=== PATIENT | male | born 1960 | race Caucasian/White ===

== ENCOUNTER → 2017-02-03 | Outpatient (CLI) | payer BC ==
[2017-02-03 08:06] LABS: ALBUMIN 3.6 GM/DL (3.2-5.2); ALKALINE PHOSPHATASE 87 U/L (45-117); ALT/SGPT 36 U/L (12-78); ANION GAP 6 MEQ/L (8-16); AST/SGOT 21 U/L (15-37); BILIRUBIN,TOTAL 0.7 MG/DL (0.2-1.0); BLOOD UREA NITROGEN 13 MG/DL (7-18); CALCIUM LEVEL 9.3 MG/DL (8.5-10.1); CARBON DIOXIDE LEVEL 32 MEQ/L (21-32); CHLORIDE LEVEL 99 MEQ/L (98-107); CHOLESTEROL LEVEL 174 MG/DL (<200); CREATININE FOR GFR 0.82 MG/DL (0.70-1.30); GLOMERULAR FILTRATION RATE > 60.0 (>56); GLUCOSE, FASTING 105 MG/DL (70-105); POTASSIUM SERUM 4.3 MEQ/L (3.5-5.1); SODIUM LEVEL 137 MEQ/L (136-145); TOTAL PROTEIN 7.2 GM/DL (6.4-8.2); TRIGLYCERIDES LEVEL 133 MG/DL (<150)
== END ==
LOC: M LAB 07:07
PROVIDERS: ATTEND Internal Medicine
DX: I10 Essential (primary) hypertension (principal); R73.01 Impaired fasting glucose; E78.00 Pure hypercholesterolemia, unspecified; Z12.5 Encounter for screening for malignant neoplasm of prostate
CPT/HCPCS: 36415; 80053; 80061; 83036; G0103

== ENCOUNTER → 2017-09-01 | Outpatient (CLI) | payer BC ==
[2017-09-01 08:56] LABS: MEAN CORPUSCULAR HGB CONC 34.3 g/dl (32.0-36.5); MEAN CORPUSCULAR VOLUME 90.3 fl (80.0-96.0); PLATELET COUNT, AUTOMATED 224 10^3/uL (150-450); WHITE BLOOD COUNT 5.8 10^3/uL (4.0-10.0)
[2017-09-01 09:34] LABS: ALBUMIN 3.8 GM/DL (3.2-5.2); ALBUMIN/GLOBULIN RATIO 1.09 (1.00-1.93); ALKALINE PHOSPHATASE 69 U/L (45-117); ALT/SGPT 34 U/L (12-78); ANION GAP 6 MEQ/L (8-16); AST/SGOT 19 U/L (7-37); BILIRUBIN,TOTAL 0.7 MG/DL (0.2-1.0); BLOOD UREA NITROGEN 21 MG/DL (7-18); CALCIUM LEVEL 8.4 MG/DL (8.5-10.1); CARBON DIOXIDE LEVEL 31 MEQ/L (21-32); CHLORIDE LEVEL 101 MEQ/L (98-107); CHOLESTEROL LEVEL 199 MG/DL (<200); CREATININE FOR GFR 0.85 MG/DL (0.70-1.30); GLOMERULAR FILTRATION RATE > 60.0 (>56); GLUCOSE, FASTING 102 MG/DL (70-105); MAGNESIUM LEVEL 2.4 MG/DL (1.8-2.4); POTASSIUM SERUM 3.9 MEQ/L (3.5-5.1); SODIUM LEVEL 138 MEQ/L (136-145); TOTAL PROTEIN 7.3 GM/DL (6.4-8.2); TRIGLYCERIDES LEVEL 144 MG/DL (<150)
== END ==
LOC: M WUC 08:07
DX: Z79.899 Other long term (current) drug therapy (principal); I10 Essential (primary) hypertension
CPT/HCPCS: 83735

== ENCOUNTER → 2018-03-24 | Outpatient (CLI) | payer BC ==
[2018-03-24 11:20] LABS: ALBUMIN 3.8 GM/DL (3.2-5.2); ALBUMIN/GLOBULIN RATIO 1.03 (1.00-1.93); ALKALINE PHOSPHATASE 66 U/L (45-117); ALT/SGPT 40 U/L (12-78); ANION GAP 7 MEQ/L (8-16); AST/SGOT 21 U/L (7-37); BILIRUBIN,TOTAL 0.7 MG/DL (0.2-1.0); BLOOD UREA NITROGEN 17 MG/DL (7-18); CALCIUM LEVEL 8.7 MG/DL (8.8-10.2); CARBON DIOXIDE LEVEL 30 MEQ/L (21-32); CHLORIDE LEVEL 101 MEQ/L (98-107); CHOLESTEROL LEVEL 194 MG/DL (<200); CHOLESTEROL RISK RATIO 3.464 (<5); CREATININE FOR GFR 0.73 MG/DL (0.70-1.30); GLOMERULAR FILTRATION RATE > 60.0 (>49); GLUCOSE, FASTING 96 MG/DL (70-100); HDL CHOLESTEROL 56 MG/DL (>40); LDL CHOLESTEROL 115.2 MG/DL (<100); MAGNESIUM LEVEL 2.2 MG/DL (1.8-2.4); NON-HDL-C 138 MG/DL; POTASSIUM SERUM 4.6 MEQ/L (3.5-5.1); SODIUM LEVEL 138 MEQ/L (136-145); TOTAL PROTEIN 7.5 GM/DL (6.4-8.2); TRIGLYCERIDES LEVEL 114 MG/DL (<150)
[2018-03-24 11:27] LABS: CREATININE, URINE 37.9 MG/DL; MALB URINE SIEMENS < 5.0 MG/L; MAU/CREAT RATIO 13.1 MCG/MG (0.0-30.0)
[2018-03-24 12:13] LABS: ESTIMATED AVERAGE GLUCOSE 114 MG/DL (60-110); HEMOGLOBIN A1c 5.6 %
== END ==
LOC: M WUC 08:18
DX: I10 Essential (primary) hypertension (principal); R73.01 Impaired fasting glucose; E78.00 Pure hypercholesterolemia, unspecified
CPT/HCPCS: 83735

== ENCOUNTER → 2018-12-27 | Outpatient (CLI) | payer BC ==
[2018-12-27 12:56] LABS: HEMATOCRIT 44.9 % (42.0-52.0); HEMOGLOBIN 14.8 g/dl (13.5-17.5); MEAN CORPUSCULAR HEMOGLOBIN 30.5 pg (27.0-33.0); MEAN CORPUSCULAR VOLUME 92.6 fl (80.0-96.0); PLATELET COUNT, AUTOMATED 218 10^3/uL (150-450); RED BLOOD COUNT 4.85 10^6/uL (4.30-6.10); WHITE BLOOD COUNT 5.2 10^3/uL (4.0-10.0)
[2018-12-27 13:21] LABS: HEMOGLOBIN A1c 5.8 %
[2018-12-27 13:31] LABS: ALBUMIN 3.7 GM/DL (3.2-5.2); ALT/SGPT 33 U/L (12-78); BILIRUBIN,TOTAL 0.8 MG/DL (0.2-1.0); BLOOD UREA NITROGEN 17 MG/DL (7-18); CALCIUM LEVEL 9.1 MG/DL (8.8-10.2); CARBON DIOXIDE LEVEL 31 MEQ/L (21-32); CHLORIDE LEVEL 99 MEQ/L (98-107); CHOLESTEROL LEVEL 221 MG/DL (<200); CHOLESTEROL RISK RATIO 3.946 (<5); CREATININE FOR GFR 0.82 MG/DL (0.70-1.30); GLOMERULAR FILTRATION RATE > 60.0 (>49); GLUCOSE, FASTING 98 MG/DL (70-100); HDL CHOLESTEROL 56 MG/DL (>40); LDL CHOLESTEROL 117 MG/DL (<100); NON-HDL-C 165 MG/DL; SODIUM LEVEL 137 MEQ/L (136-145); TOTAL PROTEIN 6.8 GM/DL (6.4-8.2); TRIGLYCERIDES LEVEL 238 MG/DL (<150)
[2018-12-28 10:28] LABS: URIC ACID 7.2 MG/DL (3.5-7.2)
== END ==
LOC: M WUC 08:51
PROVIDERS: ATTEND Internal Medicine
DX: E78.00 Pure hypercholesterolemia, unspecified (principal); R73.01 Impaired fasting glucose; E66.01 Morbid (severe) obesity due to excess calories; Z79.899 Other long term (current) drug therapy; M25.50 Pain in unspecified joint

== ENCOUNTER → 2019-08-24 | Outpatient (CLI) | payer BC ==
[2019-08-24 12:16] LABS: ALBUMIN 3.7 GM/DL (3.2-5.2); ALT/SGPT 40 U/L (12-78); BILIRUBIN,TOTAL 0.7 MG/DL (0.2-1.0); BLOOD UREA NITROGEN 20 MG/DL (7-18); CALCIUM LEVEL 9.3 MG/DL (8.8-10.2); CARBON DIOXIDE LEVEL 32 MEQ/L (21-32); CHLORIDE LEVEL 98 MEQ/L (98-107); CHOLESTEROL LEVEL 203 MG/DL (<200); CHOLESTEROL RISK RATIO 3.903 (<5); CREATININE FOR GFR 0.88 MG/DL (0.70-1.30); GLOMERULAR FILTRATION RATE > 60.0 (>49); GLUCOSE, FASTING 109 MG/DL (70-100); HDL CHOLESTEROL 52 MG/DL (>40); LDL CHOLESTEROL 123 MG/DL (<100); MAGNESIUM LEVEL 1.9 MG/DL (1.8-2.4); NON-HDL-C 151 MG/DL; POTASSIUM SERUM 4.5 MEQ/L (3.5-5.1); SODIUM LEVEL 139 MEQ/L (136-145); TOTAL PROTEIN 7.3 GM/DL (6.4-8.2); TRIGLYCERIDES LEVEL 141 MG/DL (<150); URIC ACID 7.3 MG/DL (3.5-7.2)
== END ==
LOC: M WUC 08:59
PROVIDERS: ATTEND Internal Medicine
DX: M25.50 Pain in unspecified joint (principal); I10 Essential (primary) hypertension; R73.01 Impaired fasting glucose

== ENCOUNTER → 2020-07-02 | Outpatient (CLI) | payer BC ==
[2020-07-02 16:11] LABS: HEMATOCRIT 47.3 % (42.0-52.0); HEMOGLOBIN 14.7 g/dl (13.5-17.5); MEAN CORPUSCULAR HEMOGLOBIN 29.3 pg (27.0-33.0); MEAN CORPUSCULAR HGB CONC 31.1 g/dl (32.0-36.5); MEAN CORPUSCULAR VOLUME 94.2 fl (80.0-96.0); PLATELET COUNT, AUTOMATED 278 10^3/uL (150-450); RED BLOOD COUNT 5.02 10^6/uL (4.30-6.10)
[2020-07-02 16:28] LABS: HEMOGLOBIN A1c 5.6 %
[2020-07-02 16:38] LABS: ALBUMIN 3.8 GM/DL (3.2-5.2); ALT/SGPT 36 U/L (12-78); BILIRUBIN,TOTAL 0.6 MG/DL (0.2-1.0); BLOOD UREA NITROGEN 9 MG/DL (7-18); CALCIUM LEVEL 9.5 MG/DL (8.8-10.2); CARBON DIOXIDE LEVEL 33 MEQ/L (21-32); CHLORIDE LEVEL 96 MEQ/L (98-107); CHOLESTEROL LEVEL 233 MG/DL (<200); CHOLESTEROL RISK RATIO 4.236 (<5); CREATININE FOR GFR 0.73 MG/DL (0.70-1.30); GLOMERULAR FILTRATION RATE > 60.0 (>49); GLUCOSE, FASTING 94 MG/DL (70-100); HDL CHOLESTEROL 55 MG/DL (>40); LDL CHOLESTEROL 131 MG/DL (<100); MAGNESIUM LEVEL 2.1 MG/DL (1.8-2.4); NON-HDL-C 178 MG/DL; SODIUM LEVEL 134 MEQ/L (136-145); TOTAL PROTEIN 7.8 GM/DL (6.4-8.2); TRIGLYCERIDES LEVEL 237 MG/DL (<150)
== END ==
LOC: M WUC 11:47
PROVIDERS: ATTEND Internal Medicine
DX: Z12.5 Encounter for screening for malignant neoplasm of prostate (principal); I10 Essential (primary) hypertension; Z86.010 Personal history of colon polyps
CPT/HCPCS: 36415; 80053; 80061; 83036; 83735; 85027; G0103

== ENCOUNTER → 2021-04-01 | Outpatient (CLI) | payer BC ==
[2021-04-01 13:13] LABS: ALBUMIN 3.8 GM/DL (3.2-5.2); ALT/SGPT 32 U/L (12-78); BILIRUBIN,TOTAL 0.7 MG/DL (0.2-1.0); BLOOD UREA NITROGEN 14 MG/DL (7-18); CALCIUM LEVEL 9.3 MG/DL (8.8-10.2); CARBON DIOXIDE LEVEL 33 MEQ/L (21-32); CHLORIDE LEVEL 98 MEQ/L (98-107); CHOLESTEROL LEVEL 205 MG/DL (<200); CHOLESTEROL RISK RATIO 3.474 (<5); CREATININE FOR GFR 0.79 MG/DL (0.70-1.30); GLOMERULAR FILTRATION RATE > 60.0 (>49); GLUCOSE, FASTING 100 MG/DL (70-100); HDL CHOLESTEROL 59 MG/DL (>40); LDL CHOLESTEROL 111 MG/DL (<100); MAGNESIUM LEVEL 2.1 MG/DL (1.8-2.4); NON-HDL-C 146 MG/DL; POTASSIUM SERUM 3.9 MEQ/L (3.5-5.1); SODIUM LEVEL 136 MEQ/L (136-145); TOTAL PROTEIN 7.7 GM/DL (6.4-8.2); TRIGLYCERIDES LEVEL 177 MG/DL (<150)
[2021-04-01 14:00] LABS: HEPATITIS C VIRUS ABY INDEX 0.1 INDEX (<0.8)
== END ==
LOC: M WUC 11:31
PROVIDERS: ATTEND Internal Medicine
DX: E78.00 Pure hypercholesterolemia, unspecified (principal); I10 Essential (primary) hypertension

== ENCOUNTER → 2022-10-13 | Outpatient (CLI) | payer BC ==
[2022-10-13 11:28] LABS: HEMATOCRIT 43.3 % (42.0-52.0); HEMOGLOBIN 13.6 g/dl (13.5-17.5); MEAN CORPUSCULAR HEMOGLOBIN 29.2 pg (27.0-33.0); MEAN CORPUSCULAR HGB CONC 31.4 g/dl (32.0-36.5); MEAN CORPUSCULAR VOLUME 92.9 fl (80.0-96.0); PLATELET COUNT, AUTOMATED 233 10^3/uL (150-450); RED BLOOD COUNT 4.66 10^6/uL (4.30-6.10); WHITE BLOOD COUNT 6.1 10^3/uL (4.0-10.0)
[2022-10-13 11:47] LABS: HEMOGLOBIN A1c 5.5 % (4.0-6.0)
[2022-10-13 12:00] LABS: THYROID STIMULATING HORMONE 4.171 uIU/ML (0.55-4.78); TOTAL 25(OH) VITAMIN D 14.8 NG/ML (20.0-100.0)
[2022-10-13 12:01] LABS: FREE T4 1.07 NG/DL (0.89-1.76)
[2022-10-13 12:03] LABS: VITAMIN B12 LEVEL 400 PG/ML (211-911)
[2022-10-13 12:06] LABS: ALBUMIN 3.7 G/DL (3.2-5.2); ALKALINE PHOSPHATASE 90 U/L (46-116); ALT/SGPT 22 U/L (7.0-40); AST/SGOT 22 U/L (<34); BILIRUBIN,TOTAL 0.7 MG/DL (0.3-1.2); BLOOD UREA NITROGEN 20 MG/DL (9-23); CALCIUM LEVEL 9.2 MG/DL (8.3-10.6); CARBON DIOXIDE LEVEL 33 MMOL/L (20-31); CHLORIDE LEVEL 96 MMOL/L (98-107); CHOLESTEROL LEVEL 191 MG/DL (<200); CHOLESTEROL RISK RATIO 3.52 (<5); CREATININE FOR GFR 0.78 MG/DL (0.70-1.30); GLOMERULAR FILTRATION RATE > 60.0 (>49); GLUCOSE, FASTING 100 MG/DL (74-106); HDL CHOLESTEROL 54.2 MG/DL (>40); LDL CHOLESTEROL 112.4 MG/DL (<100); NON-HDL-C 137 MG/DL; POTASSIUM SERUM 4.5 MMOL/L (3.5-5.1); SODIUM LEVEL 134 MMOL/L (136-145); TRIGLYCERIDES LEVEL 122 MG/DL (<150)
== END ==
LOC: M WUC 08:14
PROVIDERS: ATTEND Internal Medicine Hematology
DX: I10 Essential (primary) hypertension (principal)

== ENCOUNTER → 2023-03-23 | Outpatient (CLI) | payer BC ==
[2023-03-23 17:40] LABS: HEMATOCRIT 40.3 % (42.0-52.0); MEAN CORPUSCULAR HEMOGLOBIN 30.6 pg (27.0-33.0); MEAN CORPUSCULAR HGB CONC 32.3 g/dl (32.0-36.5); MEAN CORPUSCULAR VOLUME 94.8 fl (80.0-96.0); PLATELET COUNT, AUTOMATED 260 10^3/uL (150-450); RED BLOOD COUNT 4.25 10^6/uL (4.30-6.10); WHITE BLOOD COUNT 7.6 10^3/uL (4.0-10.0)
[2023-03-23 17:56] LABS: ALBUMIN 3.4 G/DL (3.2-5.2); ALKALINE PHOSPHATASE 79 U/L (46-116); ALT/SGPT 21 U/L (7.0-40); AST/SGOT 12 U/L (<34); BILIRUBIN,TOTAL 0.7 MG/DL (0.3-1.2); BLOOD UREA NITROGEN 25 MG/DL (9-23); CALCIUM LEVEL 9.1 MG/DL (8.3-10.6); CARBON DIOXIDE LEVEL 29 MMOL/L (20-31); CHLORIDE LEVEL 99 MMOL/L (98-107); CHOLESTEROL LEVEL 173 MG/DL (<200); CHOLESTEROL RISK RATIO 3.19 (<5); GLOMERULAR FILTRATION RATE > 60.0 (>49); GLUCOSE, FASTING 94 MG/DL (74-106); HDL CHOLESTEROL 54.1 MG/DL (>40); LDL CHOLESTEROL 91.5 MG/DL (<100); NON-HDL-C 118.9 MG/DL; SODIUM LEVEL 138 MMOL/L (136-145); TOTAL PROTEIN 6.8 G/DL (5.7-8.2); TRIGLYCERIDES LEVEL 137 MG/DL (<150)
[2023-03-23 17:57] LABS: THYROID STIMULATING HORMONE 3.029 uIU/ML (0.55-4.78); TOTAL 25(OH) VITAMIN D 35.2 NG/ML (20.0-100.0); VITAMIN B12 LEVEL 374 PG/ML (211-911)
[2023-03-23 17:59] LABS: FREE T4 0.96 NG/DL (0.89-1.76)
[2023-03-23 18:00] LABS: HEMOGLOBIN A1c 5.4 % (4.0-6.0)
== END ==
LOC: M WUC 13:09
PROVIDERS: ATTEND Internal Medicine Hematology
DX: E78.00 Pure hypercholesterolemia, unspecified (principal)

== ENCOUNTER → 2023-12-27 | Outpatient (REF) | payer MEDICARE, BC ==
[2023-12-27 13:30] LABS: FERRITIN 353.8 NG/ML (10.5-307.3)
[2023-12-27 13:37] LABS: PERCENT SATURATION 19.9 % (19.7-50.0)
== END ==
LOC: M LABWUC 12:39
PROVIDERS: ATTEND Internal Medicine Hematology
DX: D50.9 Iron deficiency anemia, unspecified (principal)

== ENCOUNTER → 2024-03-30 | Outpatient (REF) | payer MEDICARE, OTHER ==
[2024-03-30 13:38] LABS: PERCENT SATURATION 23.7 % (19.7-50.0)
[2024-03-30 13:41] LABS: FERRITIN 238.9 NG/ML (10.5-307.3)
== END ==
LOC: M LAB REF 12:21
PROVIDERS: ATTEND Internal Medicine
DX: D50.9 Iron deficiency anemia, unspecified (principal)

== ENCOUNTER → 2024-05-15 | Outpatient (CLI) | payer BC, MEDICARE, OTHER | LOC: M WUC 08:29 | PROVIDERS: ATTEND Internal Medicine Cardiovascular Disease | DX: R06.02 Shortness of breath (principal); I27.82 Chronic pulmonary embolism; I26.92 Saddle embolus of pulmonary artery without acute cor pulmonale ==

== ENCOUNTER → 2024-08-16 | Outpatient (CLI) | payer OTHER ==
[2024-08-16 10:15] LABS: INR 1.05
== END ==
LOC: M WUC 08:38
PROVIDERS: ATTEND Internal Medicine Hematology & Oncology
DX: I26.09 Other pulmonary embolism with acute cor pulmonale (principal); D68.61 Antiphospholipid syndrome

== ENCOUNTER → 2024-08-23 | Outpatient (REF) | payer OTHER ==
[2024-08-23 11:52] LABS: INR 1.42; PROTHROMBIN TIME 17.6 SECONDS (12.5-14.5)
== END ==
LOC: M LABWUC 11:14
PROVIDERS: ATTEND Internal Medicine Hematology & Oncology
DX: I26.09 Other pulmonary embolism with acute cor pulmonale (principal); D68.61 Antiphospholipid syndrome

== ENCOUNTER → 2024-08-23 | Outpatient (REF) | payer OTHER | LOC: M LAB REF 12:12 | PROVIDERS: ATTEND Physician Assistant | DX: B34.9 Viral infection, unspecified (principal) ==

== ENCOUNTER → 2024-08-31 | Outpatient (REF) | payer OTHER ==
[2024-08-31 16:18] LABS: INR 1.56; PROTHROMBIN TIME 18.9 SECONDS (12.5-14.5)
== END ==
LOC: M LABWUC 15:58
PROVIDERS: ATTEND Internal Medicine Hematology & Oncology
DX: I26.09 Other pulmonary embolism with acute cor pulmonale (principal); D68.61 Antiphospholipid syndrome

== ENCOUNTER → 2024-09-07 | Outpatient (REF) | payer OTHER ==
[2024-09-07 11:37] LABS: INR 1.46
== END ==
LOC: M LABWUC 11:16
PROVIDERS: ATTEND Internal Medicine Hematology & Oncology
DX: I26.09 Other pulmonary embolism with acute cor pulmonale (principal); D68.61 Antiphospholipid syndrome

== ENCOUNTER → 2024-09-18 | Outpatient (REF) | payer BC, MEDICARE, OTHER ==
[2024-09-18 12:19] LABS: INR 1.52; PROTHROMBIN TIME 18.6 SECONDS (12.5-14.5)
== END ==
LOC: M LABWUC 11:21
PROVIDERS: ATTEND Internal Medicine Hematology & Oncology
DX: I26.09 Other pulmonary embolism with acute cor pulmonale (principal); D68.61 Antiphospholipid syndrome

== ENCOUNTER → 2024-09-25 | Outpatient (REF) | payer OTHER ==
[2024-09-25 13:29] LABS: INR 1.68
== END ==
LOC: M LABWUC 12:45
PROVIDERS: ATTEND Internal Medicine Hematology & Oncology
DX: I26.09 Other pulmonary embolism with acute cor pulmonale (principal); D68.61 Antiphospholipid syndrome

== ENCOUNTER → 2024-10-02 | Outpatient (REF) | payer BC, MEDICARE, OTHER ==
[2024-10-02 12:28] LABS: INR 3.37; PROTHROMBIN TIME 33.9 SECONDS (12.5-14.5)
== END ==
LOC: M LABWUC 12:13
PROVIDERS: ATTEND Internal Medicine Hematology & Oncology
DX: I26.09 Other pulmonary embolism with acute cor pulmonale (principal); D68.61 Antiphospholipid syndrome

== ENCOUNTER → 2024-10-09 | Outpatient (REF) | payer BC, MEDICARE, OTHER ==
[2024-10-09 12:36] LABS: INR 1.78; PROTHROMBIN TIME 20.9 SECONDS (12.5-14.5)
== END ==
LOC: M LABWUC 12:18
PROVIDERS: ATTEND Internal Medicine Hematology & Oncology
DX: I26.09 Other pulmonary embolism with acute cor pulmonale (principal); D68.61 Antiphospholipid syndrome

== ENCOUNTER → 2024-10-16 | Outpatient (REF) | payer OTHER ==
[2024-10-16 10:11] LABS: INR 1.58; PROTHROMBIN TIME 19.1 SECONDS (12.5-14.5)
== END ==
LOC: M LABWUC 09:39
PROVIDERS: ATTEND Internal Medicine Hematology & Oncology
DX: I26.09 Other pulmonary embolism with acute cor pulmonale (principal); D68.61 Antiphospholipid syndrome

== ENCOUNTER → 2024-11-13 | Outpatient (REF) | payer OTHER ==
[2024-11-13 12:20] LABS: INR 1.49; PROTHROMBIN TIME 18.3 SECONDS (12.5-14.5)
== END ==
LOC: M LABWUC 12:03
PROVIDERS: ATTEND Internal Medicine Hematology & Oncology
DX: I26.09 Other pulmonary embolism with acute cor pulmonale (principal); D68.61 Antiphospholipid syndrome

== ENCOUNTER → 2024-11-20 | Outpatient (REF) | payer OTHER ==
[2024-11-20 12:21] LABS: INR 1.83; PROTHROMBIN TIME 21.3 SECONDS (12.5-14.5)
== END ==
LOC: M LABWUC 11:59
PROVIDERS: ATTEND Internal Medicine Hematology & Oncology
DX: I26.09 Other pulmonary embolism with acute cor pulmonale (principal); D68.61 Antiphospholipid syndrome

== ENCOUNTER → 2024-11-27 | Outpatient (REF) | payer BC, MEDICARE, OTHER ==
[2024-11-27 12:24] LABS: INR 2.19; PROTHROMBIN TIME 24.4 SECONDS (12.5-14.5)
== END ==
LOC: M LABWUC 12:02
PROVIDERS: ATTEND Internal Medicine Hematology & Oncology
DX: I26.09 Other pulmonary embolism with acute cor pulmonale (principal); D68.61 Antiphospholipid syndrome

== ENCOUNTER → 2024-12-04 | Outpatient (REF) | payer BC ==
[2024-12-04 12:18] LABS: INR 2.21; PROTHROMBIN TIME 24.6 SECONDS (12.5-14.5)
== END ==
LOC: M LABWUC 11:52
PROVIDERS: ATTEND Internal Medicine Hematology & Oncology
DX: I26.09 Other pulmonary embolism with acute cor pulmonale (principal); D68.61 Antiphospholipid syndrome

== ENCOUNTER → 2024-12-18 | Outpatient (REF) | payer BC ==
[2024-12-18 12:54] LABS: INR 2.71; PROTHROMBIN TIME 28.7 SECONDS (12.5-14.5)
== END ==
LOC: M LAB REF 12:32 → M LABWUC 12:32
PROVIDERS: ATTEND Internal Medicine Hematology & Oncology
DX: I26.09 Other pulmonary embolism with acute cor pulmonale (principal); D68.61 Antiphospholipid syndrome

== ENCOUNTER → 2025-01-02 | Outpatient (REF) | payer BC ==
[2025-01-02 12:03] LABS: INR 2.25
== END ==
LOC: M LABWUC 11:43
PROVIDERS: ATTEND Internal Medicine Hematology & Oncology
DX: I26.09 Other pulmonary embolism with acute cor pulmonale (principal); D68.61 Antiphospholipid syndrome

== ENCOUNTER → 2025-01-23 | Outpatient (REF) | payer BC ==
[2025-01-23 12:25] LABS: INR 1.74; PROTHROMBIN TIME 20.6 SECONDS (12.5-14.5)
== END ==
LOC: M LABWUC 12:04
PROVIDERS: ATTEND Internal Medicine Hematology & Oncology
DX: I26.09 Other pulmonary embolism with acute cor pulmonale (principal); D68.61 Antiphospholipid syndrome

== ENCOUNTER → 2025-03-06 | Outpatient (REF) | payer BC ==
[2025-03-06 12:18] LABS: INR 3.12
== END ==
LOC: M LABWUC 11:53
PROVIDERS: ATTEND Internal Medicine Hematology & Oncology
DX: D68.61 Antiphospholipid syndrome (principal); I26.09 Other pulmonary embolism with acute cor pulmonale

== ENCOUNTER → 2025-03-13 | Outpatient (CLI) | payer BC ==
[2025-03-13 12:42] LABS: INR 1.88
== END ==
LOC: M WUC 08:52
PROVIDERS: ATTEND Internal Medicine Hematology & Oncology
DX: D68.61 Antiphospholipid syndrome (principal)

== ENCOUNTER → 2025-03-20 | Outpatient (REF) | payer BC ==
[2025-03-20 11:58] LABS: INR 1.61
== END ==
LOC: M LABWUC 11:38
PROVIDERS: ATTEND Internal Medicine Hematology & Oncology
DX: I26.09 Other pulmonary embolism with acute cor pulmonale (principal); D68.61 Antiphospholipid syndrome

== ENCOUNTER → 2025-03-26 | Outpatient (REF) | payer BC ==
[2025-03-26 12:07] LABS: INR 1.49
== END ==
LOC: M LABWUC 11:44
PROVIDERS: ATTEND Internal Medicine Hematology & Oncology
DX: D68.61 Antiphospholipid syndrome (principal); I26.09 Other pulmonary embolism with acute cor pulmonale

== ENCOUNTER → 2025-04-02 | Outpatient (REF) | payer BC ==
[2025-04-02 12:05] LABS: INR 2.17
== END ==
LOC: M LABWUC 11:41
PROVIDERS: ATTEND Internal Medicine Hematology & Oncology
DX: I26.09 Other pulmonary embolism with acute cor pulmonale (principal); D68.61 Antiphospholipid syndrome

== ENCOUNTER → 2025-04-09 | Outpatient (REF) | payer BC ==
[2025-04-09 12:05] LABS: INR 2.66
== END ==
LOC: M LABWUC 11:40
PROVIDERS: ATTEND Internal Medicine Hematology & Oncology
DX: D68.61 Antiphospholipid syndrome (principal); I26.09 Other pulmonary embolism with acute cor pulmonale

== ENCOUNTER → 2025-04-16 | Outpatient (REF) | payer BC ==
[2025-04-16 12:05] LABS: INR 4.55
== END ==
LOC: M LABWUC 11:29
PROVIDERS: ATTEND Internal Medicine Hematology & Oncology
DX: I26.09 Other pulmonary embolism with acute cor pulmonale (principal); D68.61 Antiphospholipid syndrome

== ENCOUNTER → 2025-04-20 | Outpatient (REF) | payer BC ==
[2025-04-20 12:05] LABS: INR 2.7
== END ==
LOC: M LABWUC 11:44
PROVIDERS: ATTEND Internal Medicine Hematology & Oncology
DX: I26.09 Other pulmonary embolism with acute cor pulmonale (principal); D68.61 Antiphospholipid syndrome

== ENCOUNTER → 2025-04-27 | Outpatient (REF) | payer BC ==
[2025-04-27 12:32] LABS: INR 2.26
== END ==
LOC: M LABWUC 11:38 → M LAB REF 11:38
PROVIDERS: ATTEND Internal Medicine Hematology & Oncology
DX: I26.09 Other pulmonary embolism with acute cor pulmonale (principal); D68.61 Antiphospholipid syndrome

== ENCOUNTER → 2025-05-04 | Outpatient (CLI) | payer BC ==
[2025-05-04 12:16] LABS: INR 2.28
== END ==
LOC: M WUC 08:42
PROVIDERS: ATTEND Internal Medicine Hematology & Oncology
DX: I26.09 Other pulmonary embolism with acute cor pulmonale (principal)

== ENCOUNTER → 2025-05-11 | Outpatient (REF) | payer BC ==
[2025-05-11 12:35] LABS: INR 1.92
== END ==
LOC: M LABWUC 12:04 → M LAB REF 12:04
PROVIDERS: ATTEND Internal Medicine Hematology & Oncology
DX: I26.09 Other pulmonary embolism with acute cor pulmonale (principal); D68.61 Antiphospholipid syndrome

== ENCOUNTER → 2025-05-18 | Outpatient (REF) | payer BC ==
[2025-05-18 11:58] LABS: INR 2.33
== END ==
LOC: M LABWUC 11:30
PROVIDERS: ATTEND Internal Medicine Hematology & Oncology
DX: I26.09 Other pulmonary embolism with acute cor pulmonale (principal); D68.61 Antiphospholipid syndrome

== ENCOUNTER → 2025-05-22 | Outpatient (REF) | payer BC ==
[2025-05-22 13:05] LABS: INR 2.03
== END ==
LOC: M LABWUC 12:30
PROVIDERS: ATTEND Internal Medicine Hematology & Oncology
DX: I26.09 Other pulmonary embolism with acute cor pulmonale (principal); D68.61 Antiphospholipid syndrome

== ENCOUNTER → 2025-05-29 | Outpatient (REF) | payer BC ==
[2025-05-29 12:38] LABS: INR 2.71
== END ==
LOC: M LABWUC 12:07
PROVIDERS: ATTEND Internal Medicine Hematology & Oncology
DX: I26.09 Other pulmonary embolism with acute cor pulmonale (principal); D68.61 Antiphospholipid syndrome

== ENCOUNTER → 2025-06-05 | Outpatient (REF) | payer BC ==
[2025-06-05 12:12] LABS: INR 3.36
== END ==
LOC: M LABWUC 11:50
PROVIDERS: ATTEND Internal Medicine Hematology & Oncology
DX: I26.09 Other pulmonary embolism with acute cor pulmonale (principal); D68.61 Antiphospholipid syndrome

== ENCOUNTER 2025-06-11 20:47 | Emergency (ER) | payer BC ==
[~2025-06-11] VITALS: Ht 172.7 cm; Wt 151.7 kg
[2025-06-11 20:59] VITALS: BP 195/88; TEMP 97.6; O2SAT 97
[2025-06-11 21:30] LABS: KETONE, URINE MANUAL REFLEX OBSCURED mg/dL (NEGATIVE); PROTEIN, URINE MANUAL REFLEX OBSCURED mg/dL (NEGATIVE); SP GRAVITY,URINE MANUAL REFLEX 1.025 (1.002-1.035)
[2025-06-11 21:31] LABS: NITRITE, URINE MANUAL RFX OBSCURED (NEGATIVE); UROBILINOGEN, UA MANUAL REFLEX OBSCURED mg/dl (NORMAL)
[2025-06-11 21:32] LABS: HYALINE CAST, URINE RFX NONE SEEN /lpf (0-1); RBC, URINE MAN REFLEX TNTC /hpf (0-3); SQUAMOUS EPITHELIAL URINE RFX SMALL AMOUNT /hpf (SMALL AMT); TRANSITIONAL EPI, URINE RFX SMALL AMOUNT /hpf; WBC, URINE MAN RFX 15-20 /hpf (0-3)
[2025-06-11 21:33] LABS: MICROSCOPIC EXAM RFX UNSPUN
[2025-06-11 22:56] LABS: BASO # 0.0 10^3/uL (0.0-0.2); BASO % 0.3 % (0.0-1.0); EOS # 0.1 10^3/uL (0.0-0.5); EOS % 1.7 % (0.0-3.0); LYMPH # 1.2 10^3/uL (1.5-5.0); LYMPH % 15.4 % (24.0-44.0); MONO # 0.7 10^3/uL (0.0-0.8); MONO % 8.6 % (2.0-8.0); NEUTROPHILS # 5.4 10^3/uL (1.5-8.5); NEUTROPHILS % 71.4 % (36.0-66.0); PLATELET COUNT, AUTOMATED 242 10^3/uL (150-450)
[2025-06-11 23:08] LABS: INR 3.22
[2025-06-11 23:28] LABS: CALCIUM LEVEL 8.9 MG/DL (8.3-10.6); CARBON DIOXIDE LEVEL 24.0 MMOL/L (20-31); CHLORIDE LEVEL 95.0 MMOL/L (98-107); CREATININE FOR GFR 0.95 MG/DL (0.70-1.30); GLOMERULAR FILTRATION RATE 87.7 (>49); POTASSIUM SERUM 4.6 MMOL/L (3.5-5.1); SODIUM LEVEL 130.0 MMOL/L (136-145)
== END 2025-06-11 23:52 | disposition left against medical advice (07) ==
LOC: M ED 20:47
DX: Z53.21 Procedure and treatment not carried out due to patient leaving prior to being seen by health care provider (principal)

== ENCOUNTER → 2025-06-14 | Outpatient (REF) | payer BC ==
[2025-06-14 12:11] LABS: INR 2.43
== END ==
LOC: M LABWUC 11:50
PROVIDERS: ATTEND Internal Medicine Hematology & Oncology
DX: I26.09 Other pulmonary embolism with acute cor pulmonale (principal); D68.61 Antiphospholipid syndrome

== ENCOUNTER → 2025-06-20 | Outpatient (REF) | payer BC ==
[2025-06-20 11:52] LABS: INR 1.75
== END ==
LOC: M LABWUC 11:31
PROVIDERS: ATTEND Internal Medicine Hematology & Oncology
DX: I26.09 Other pulmonary embolism with acute cor pulmonale (principal); D68.61 Antiphospholipid syndrome

== ENCOUNTER → 2025-06-27 | Outpatient (REF) | payer BC ==
[2025-06-27 12:23] LABS: INR 1.84
== END ==
LOC: M LABWUC 12:01
PROVIDERS: ATTEND Internal Medicine Hematology & Oncology
DX: I26.09 Other pulmonary embolism with acute cor pulmonale (principal); D68.61 Antiphospholipid syndrome

== ENCOUNTER → 2025-07-04 | Outpatient (REF) | payer BC ==
[2025-07-04 12:40] LABS: INR 2.25
== END ==
LOC: M LABWUC 11:56 → M LAB REF 11:56
PROVIDERS: ATTEND Internal Medicine Hematology & Oncology
DX: I26.09 Other pulmonary embolism with acute cor pulmonale (principal); D68.61 Antiphospholipid syndrome

== ENCOUNTER → 2025-07-11 | Outpatient (REF) | payer BC ==
[2025-07-11 12:36] LABS: INR 2.25
== END ==
LOC: M LABWUC 12:01
PROVIDERS: ATTEND Internal Medicine Hematology & Oncology
DX: I26.09 Other pulmonary embolism with acute cor pulmonale (principal); D68.61 Antiphospholipid syndrome

== ENCOUNTER → 2025-07-18 | Outpatient (REF) | payer BC ==
[2025-07-18 12:32] LABS: INR 2.83
== END ==
LOC: M LABWUC 11:51
PROVIDERS: ATTEND Internal Medicine Hematology & Oncology
DX: I26.09 Other pulmonary embolism with acute cor pulmonale (principal); D68.61 Antiphospholipid syndrome

== ENCOUNTER → 2025-07-31 | Outpatient (REF) | payer BC ==
[2025-07-31 12:41] LABS: INR 2.5
== END ==
LOC: M LABWUC 11:44
PROVIDERS: ATTEND Internal Medicine Hematology & Oncology
DX: D68.61 Antiphospholipid syndrome (principal); I26.09 Other pulmonary embolism with acute cor pulmonale

== ENCOUNTER → 2025-08-14 | Outpatient (REF) | payer BC ==
[2025-08-14 12:37] LABS: INR 2.01
== END ==
LOC: M LABWUC 12:06
PROVIDERS: ATTEND Internal Medicine Hematology & Oncology
DX: I26.09 Other pulmonary embolism with acute cor pulmonale (principal); D68.61 Antiphospholipid syndrome

== ENCOUNTER → 2025-08-29 | Outpatient (REF) | payer BC ==
[2025-08-29 12:10] LABS: INR 1.91
== END ==
LOC: M LABWUC 11:38
PROVIDERS: ATTEND Internal Medicine Hematology & Oncology
DX: I26.09 Other pulmonary embolism with acute cor pulmonale (principal); D68.61 Antiphospholipid syndrome

== ENCOUNTER → 2025-09-05 | Outpatient (REF) | payer BC ==
[2025-09-05 12:59] LABS: INR 1.96
== END ==
LOC: M LABWUC 11:57
PROVIDERS: ATTEND Internal Medicine Hematology & Oncology
DX: I26.09 Other pulmonary embolism with acute cor pulmonale (principal); D68.61 Antiphospholipid syndrome